=== PATIENT | male | born 1975 | race African-American/Black ===

== ENCOUNTER 2020-01-22 18:40 | Emergency (ER) | payer MEDICARE, MEDICAID ==
[~2020-01-22] VITALS: Ht 182.9 cm; Wt 92.1 kg
[~2020-01-22 18:40] MED LIST: ASPI-515 PO; CARV-39 PO; FURO-92 PO; FUROSEMIDE 40 MG TABLET PO ONE; GLIP10TA13 PO; LOSA50TA14 PO; LOVA40TA2 PO; POTA10TA PO; SPIR50TA4 PO
[2020-01-22] MEDS ORDERED: SEMA1PEN INJ (19:08)
[2020-01-22] MEDS ORDERED: ALBUTEROL (19:08)
--- NOTE | 2020-01-22 19:15 | NUR ---
THIS IS A 44 YO M W/ C/O SOB, NON PRODUCTIVE COUGHX2 DAYS. PT REPORTS HX OF ASTHMA, HAS USED ALBUTEROL INHALER W/ NO RELIEF. PT VSS, ELBAN. PT RESTING ON Play With Pictures / Hang[employer] W/ CALL LIGHT IN REACH. LAB AND CXR DONE. PT AWAITING RESULTS.
[2020-01-22 19:21] LABS: BASOPHILS # (AUTO) 0.08 x10^3/uL (0-0.1); BASOPHILS % (AUTO) 1 % (0-1); EOSINOPHILS # (AUTO) 0.11 x10^3/uL (0-0.4); EOSINOPHILS % (AUTO) 1 % (1-7); LYMPHOCYTES # (AUTO) 2.78 x10^3/uL (1-3.4); LYMPHOCYTES % (AUTO) 19 % (22-44); MD NO; MEAN CORPUSCULAR HEMOGLOBIN 29.8 pg (27.5-34.5); MEAN CORPUSCULAR HGB CONC 33.4 g/dL (33.2-36.2); MEAN CORPUSCULAR VOLUME 89.1 fL (81-97); MEAN PLATELET VOLUME 8.6 fL (7.4-10.4); MONOCYTES # (AUTO) 0.76 x10^3/uL (0.2-0.8); MONOCYTES % (AUTO) 5 % (2-9); NEUTROPHILS # (AUTO) 10.78 x10^3/uL (1.8-6.8); NEUTROPHILS % (AUTO) 74 % (42-75); PLATELET COUNT 279 x10^3/uL (130-400); RED BLOOD COUNT 5.54 x10^6/uL (4.38-5.82); RED CELL DISTRIBUTION WIDTH 13.1 % (9.4-14.8)
--- NOTE | 2020-01-22 19:23 | NUR ---
AT BEDSIDE FOR ED EVAL.
[2020-01-22 19:31] LABS: ALBUMIN 3.2 g/dL (3.4-5.0); ANION GAP 8 mmol/L (5-15); CALCIUM 8.5 mg/dL (8.5-10.1); CHLORIDE 101 mmol/L (98-107)
[2020-01-22 19:37] LABS: ALANINE AMINOTRANSFERASE 15 U/L (12-78); ALKALINE PHOSPHATASE 85 U/L (45-117); CREATININE 1.01 mg/dL (0.7-1.3); TOTAL PROTEIN 7.7 g/dL (6.4-8.2); TROPONIN I < 0.015 ng/mL (0.000-0.045)
--- NOTE | 2020-01-22 19:45 | NUR ---
ALL TESTS RESULTED. PT IS UP FOR RECHECK AT THIS TIME.
[2020-01-22] MEDS ORDERED: FUROSEMIDE 40 MG TABLET ONE (19:51)
[2020-01-22 19:55] VITALS: BP 129/88
== END 2020-01-22 20:09 | disposition home or self-care (01) ==
LOC: ED 19:42
DX: R06.00 Dyspnea, unspecified (principal); I11.0 Hypertensive heart disease with heart failure; I50.9 Heart failure, unspecified; R94.31 Abnormal electrocardiogram [ECG] [EKG]; E11.9 Type 2 diabetes mellitus without complications; E78.5 Hyperlipidemia, unspecified; Z95.0 Presence of cardiac pacemaker; Z90.49 Acquired absence of other specified parts of digestive tract
CPT/HCPCS: 36415; 71045; 80053; 83880; 84484; 85025; 93005; 99285

== ENCOUNTER → 2020-04-17 | Outpatient (CLI) | payer OTHER, MEDICAID, MEDICARE ==
[~2020-04-17] MED LIST changes: +ALBUTEROL; -FUROSEMIDE 40 MG TABLET PO ONE; +REGADENOSON 0.4 MG/5 ML SYRINGE ONE; +SEMA1PEN INJ
== END | disposition home or self-care (01) ==
LOC: CFH 06:51
PROVIDERS: ATTEND Internal Medicine Cardiovascular Disease
DX: I08.8 Other rheumatic multiple valve diseases (principal); I11.9 Hypertensive heart disease without heart failure; I42.9 Cardiomyopathy, unspecified; E78.5 Hyperlipidemia, unspecified
CPT/HCPCS: 78452; 93017; 93306; A9502; J2785

== ENCOUNTER → 2020-04-29 | Outpatient (CLI) | payer MEDICARE, MEDICAID ==
[~2020-04-29] MED LIST changes: +ALBU5SOL6 INH; +ATOR40TA78 PO; +CYCL-259 PO; +EMPA25TA PO; +INSU200I4 SQ; +LISI-170 PO; +METO-99 PO; +OMEP-110 PO; +PIOG30TA67 PO; -REGADENOSON 0.4 MG/5 ML SYRINGE ONE; +SILD100T PO; +TORS20TA2 PO
[2020-04-29 11:10] LABS: BASOPHILS # (AUTO) 0.04 x10^3/uL (0-0.1); BASOPHILS % (AUTO) 0 % (0-1); EOSINOPHILS # (AUTO) 0.12 x10^3/uL (0-0.4); EOSINOPHILS % (AUTO) 1 % (1-7); LYMPHOCYTES # (AUTO) 2.21 x10^3/uL (1-3.4); LYMPHOCYTES % (AUTO) 27 % (22-44); MD NO; MEAN CORPUSCULAR HEMOGLOBIN 29.7 pg (27.5-34.5); MEAN CORPUSCULAR HGB CONC 33.3 g/dL (33.2-36.2); MEAN CORPUSCULAR VOLUME 89.3 fL (81-97); MEAN PLATELET VOLUME 9.2 fL (7.4-10.4); MONOCYTES # (AUTO) 0.54 x10^3/uL (0.2-0.8); MONOCYTES % (AUTO) 7 % (2-9); NEUTROPHILS # (AUTO) 5.44 x10^3/uL (1.8-6.8); NEUTROPHILS % (AUTO) 65 % (42-75); PLATELET COUNT 281 x10^3/uL (130-400); RED BLOOD COUNT 4.97 x10^6/uL (4.38-5.82); RED CELL DISTRIBUTION WIDTH 13.7 % (9.4-14.8)
[2020-04-29 11:21] LABS: ALANINE AMINOTRANSFERASE 19 U/L (12-78); ALBUMIN 3.2 g/dL (3.4-5.0); ANION GAP 9 mmol/L (5-15); CALCIUM 8.9 mg/dL (8.5-10.1); CHLORIDE 95 mmol/L (98-107); CREATININE 0.88 mg/dL (0.7-1.3)
[2020-04-29 11:23] LABS: ALKALINE PHOSPHATASE 74 U/L (45-117); BILIRUBIN,TOTAL 2.1 mg/dL (0.2-1.0); TOTAL PROTEIN 7.3 g/dL (6.4-8.2)
== END | disposition home or self-care (01) ==
LOC: STAR 08:39
PROVIDERS: ATTEND Orthopaedic Surgery
DX: Z01.812 Encounter for preprocedural laboratory examination (principal); M20.12 Hallux valgus (acquired), left foot; R00.0 Tachycardia, unspecified; R94.31 Abnormal electrocardiogram [ECG] [EKG]; I21.09 ST elevation (STEMI) myocardial infarction involving other coronary artery of anterior wall; Z20.828 Contact with and (suspected) exposure to other viral communicable diseases
CPT/HCPCS: 36415; 80053; 85025; 87635; 93005

== ENCOUNTER 2020-05-03 11:20 | Day surgery (SDC) | payer MEDICARE, MEDICAID ==
[~2020-05-03] VITALS: Ht 182.9 cm; Wt 83.0 kg
[2020-05-03 11:51] VITALS: BP 105/77
[2020-05-03] MEDS ORDERED: MIDAZOLAM 1 MG/ML, 2ML ONE (11:53)
[2020-05-03] MEDS ORDERED: FENTANYL PF 250 MCG/5ML ONE (11:53)
[2020-05-03] MEDS ORDERED: CEFAZOLIN 1,000 MG ONE ×3 (11:54)
[2020-05-03] MEDS ORDERED: PROPOFOL 10 MG/ML, 20ML ONE (11:54)
[2020-05-03] MEDS ORDERED: LACTATED RINGERS 1,000 ML IV SCH (11:55)
[2020-05-03] MEDS ORDERED: ROPIvacaine/PF 0.5%, 30 ML ONE ×2 (11:56)
[2020-05-03] MEDS ORDERED: CHLORHEXIDINE 15 ML UDC MM ONE (12:00)
[2020-05-03] MEDS ORDERED: PROPOFOL 50 ML ONE (13:49)
[2020-05-03] MEDS ORDERED: OXYcodone 5 MG/5 ML ORAL.SOL UDC PO PRN (14:00)
[2020-05-03] MEDS ORDERED: HYDROmorphone 1 MG/ML, 1ML INJ IVPush PRN (14:00)
[2020-05-03] MEDS ORDERED: ACETAMINOPHEN 325 MG TABLET PO PRN (14:00)
[2020-05-03] MEDS ORDERED: MEPERIDINE/PF 25MG/0.5ML IVPush PRN (14:00)
[2020-05-03] MEDS ORDERED: FENTANYL PF 100 MCG/2ML IV PRN (14:00)
[2020-05-03] MEDS ORDERED: LABETALOL 5MG/ML, 20ML IV PRN (14:00)
[2020-05-03] MEDS ORDERED: hydrALAzine 20 MG/ML, 1ML IV PRN (14:00)
[2020-05-03] MEDS ORDERED: morphine SULFATE 10 MG/ML, 1ML IVPush PRN (14:00)
[2020-05-03] MEDS ORDERED: ONDANSETRON 2MG/ML, 2ML IVPush PRN (14:00)
[2020-05-03] MEDS ORDERED: BUPIVACAINE/PF 0.5% ONE (14:22)
[2020-05-03] MEDS ORDERED: LIDOCAINE 1%, 20ML ONE (14:22)
[2020-05-03] MEDS ORDERED: INSULIN SINGLE DOSE, ER ONE (15:10)
[2020-05-03] MEDS ORDERED: INSULIN REGULAR 100 UNITS/ML, 3ML VIAL SQ-INSULIN ONE (15:30)
== END 2020-05-03 16:40 | disposition home or self-care (01) ==
LOC: OUT 11:20
PROVIDERS: ATTEND Orthopaedic Surgery
DX: M20.12 Hallux valgus (acquired), left foot (principal); M79.672 Pain in left foot; E11.9 Type 2 diabetes mellitus without complications; I10 Essential (primary) hypertension; K21.9 Gastro-esophageal reflux disease without esophagitis; I42.9 Cardiomyopathy, unspecified; E78.5 Hyperlipidemia, unspecified; J45.909 Unspecified asthma, uncomplicated; Z79.82 Long term (current) use of aspirin; Z79.899 Other long term (current) drug therapy; Z79.4 Long term (current) use of insulin; Z98.890 Other specified postprocedural states
CPT/HCPCS: 28296; 28298; 36415; 64447; 73620; 76000; 80047; 82962; C1713; J0690; J1815; J2250; J2704; J2795; J3010; J7120